=== PATIENT | female | born 1965 | race Caucasian/White ===

== ENCOUNTER 2017-07-30 10:31 | Emergency (ER) | payer SELFPAY ==
--- NOTE | 2017-07-30 10:40 | ED.PDOC ---
History of Present Illness - General Chief Complaint: General Stated Complaint: constipation Time Seen by Provider: 07/30/17 10:38 Information Source: patient Exam Limitations: no limitations - History of Present Illness Initial Comments: Bee Webb 51 y/o female stated that she had been constipated for the last 2 weeks and had bowel movement w/ small stools today and for the last one week with some abdominal discomfort and crampings.Had used OTC laxatives and stool softeners;no nausea/vomiting or abdominal pain Abdominal Pain Onset Location: other - discomfort/cramps Pain Radiation: no radiation Quality: moderate, cramping Timing/Duration: other - one week Worsening Factors: nothing Associated Symptoms: fever/chills Review of Systems - Review of Systems Constitutional: States: no symptoms reported EENTM: States: no symptoms reported Respiratory: States: no symptoms reported Cardiology: States: no symptoms reported Gastrointestinal/Abdominal: States: see HPI Genitourinary: States: no symptoms reported Past Medical History (General) - Patient Medical History Hx Seizures: No Hx Stroke: No Hx Dementia: No Hx Asthma: No Hx of COPD: No Hx Cardiac Disorders: No Hx Congestive Heart Failure: No Hx Pacemaker: No Hx Hypertension: Yes Hx Thyroid Disease: No Hx Diabetes: No Hx Gastroesophageal Reflux: No Hx Renal Disease: No Hx of HIV: No Hx MRSA: No Surgical History: other - c- section - Vaccination History Hx Tetanus, Diphtheria Vaccination: Yes - 03/2016 Hx Influenza Vaccination: No Hx Pneumococcal Vaccination: No - Social History Hx Tobacco Use: Yes - quit 1989 Hx Alcohol Use: No Hx Substance Use: No Hx Substance Use Treatment: No Hx Depression: No Hx Physical Abuse: No Hx Emotional Abuse: No Hx Suspected Abuse: No - Female History Patient : No Family Medical History - Family History Mother Family History: No Known Living Status: Hx Family;Other: aneurysm, brain Physical Exam - Physical Exam General Appearance: Alert, No apparent distress Eyes, Ears, Nose, Throat Exam: PERRL/EOMI, normal ENT inspection, pharynx normal Neck: non-tender, full range of motion, supple Respiratory: chest non-tender, lungs clear, normal breath sounds Cardiovascular/Chest: normal peripheral pulses, regular rate, rhythm, no murmur Peripheral Pulses: No deficit Gastrointestinal/Abdominal: soft, no organomegaly, tenderness - generalized Rectal Exam: normal rectal tone, heme negative stool, other - empty rectal vault Back Exam: no CVA tenderness, no vertebral tenderness Extremity: normal range of motion, non-tender Neurologic: alert, normal mood/affect, oriented x 3 Skin Exam: normal color, warm/dry Lymphatic: no adenopathy Progress - Progress Progress: 07/30/17 13:16 Last Vital Signs Temp 101.6 F H 07/30/17 12:00 Pulse 85 07/30/17 12:00 Resp 20 07/30/17 12:00 BP 128/87 07/30/17 12:00 Pulse Ox 97 07/30/17 12:00 Laboratory Tests 07/30/17 07/30/17 07/30/17 11:00 11:00 11:08 WBC 14.8 H RBC 5.20 Hgb 14.9 Hct 43.9 MCV 84.4 MCH 28.7 MCHC 34.0 RDW 13.0 Plt Count 479 H MPV 7.6 Absolute Neuts (auto) 12.60 H Absolute Lymphs (auto) 1.10 Absolute Monos (auto) 1.10 H Absolute Eos (auto) 0.00 Absolute Basos (auto) 0.00 Neutrophils % 85.2 H Lymphocytes % 7.1 L Monocytes % 7.2 Eosinophils % 0.2 L Basophils % 0.3 Sodium 135 Potassium 2.9 L Chloride 96 L Carbon Dioxide 24 Anion Gap 17.9 BUN 8 Creatinine 0.81 BUN/Creatinine Ratio 9.9 L Random Glucose 140 H Serum Osmolality 270.7 L Lactic Acid Calcium 9.7 Magnesium Total Bilirubin 0.8 AST 46 H ALT 121 H Alkaline Phosphatase 109 Serum Total Protein 8.6 H Albumin 3.9 Globulin 4.7 H Albumin/Globulin Ratio 0.8 L Urine Color Yellow Urine Appearance Clear Urine pH 7.0 Ur Specific [place] 1.020 Urine Protein Negative Urine Glucose (UA) Negative Urine Ketones Negative Urine Blood Trace-lysed H Urine Nitrite Negative Urine Bilirubin Negative Urine Urobilinogen 1.0 Ur Leukocyte Esterase Negative Urine RBC 1-3 Urine WBC 0 Ur Epithelial Cells 0 Urine Bacteria 0 Stool Occult Blood 07/30/17 07/30/17 07/30/17 11:08 11:15 11:55 WBC RBC Hgb Hct MCV MCH MCHC RDW Plt Count MPV Absolute Neuts (auto) Absolute Lymphs (auto) Absolute Monos (auto) Absolute Eos (auto) Absolute Basos (auto) Neutrophils % Lymphocytes % Monocytes % Eosinophils % Basophils % Sodium Potassium Chloride Carbon Dioxide Anion Gap BUN Creatinine BUN/Creatinine Ratio Random Glucose Serum Osmolality Lactic Acid 1.8 Calcium Magnesium 2.1 Total Bilirubin AST ALT Alkaline Phosphatase Serum Total Protein Albumin Globulin Albumin/Globulin Ratio Urine Color Urine Appearance Urine pH Ur Specific [place] Urine Protein Urine Glucose (UA) Urine Ketones Urine Blood Urine Nitrite Urine Bilirubin Urine Urobilinogen Ur Leukocyte Esterase Urine RBC Urine WBC Ur Epithelial Cells Urine Bacteria Stool Occult Blood Negative Discussed with Dr. Martin surgeon will see patient at ER. - EKG/XRAY/CT CT Ordered: Yes - sigmoid diverticulitis with pelvic abscess Departure - Departure Clinical Impression: Hypokalemia due to loss of potassium Abdominal pain Qualifiers: Abdominal location: generalized Qualified Code(s): R10.84 - Generalized abdominal pain Diverticulitis Qualifiers: Diverticulitis site: large intestine Diverticulitis bleeding: without bleeding Diverticulitis complication: with abscess Qualified Code(s): K57.20 - Diverticulitis of large intestine with perforation and abscess without bleeding Time of Disposition: 14:16 Disposition: Transfer to Hospital Condition: Good Departure Forms: Patient Portal Self Enrollment Referrals: Kimberly Florez, [facility] [Primary Care Provider] - 1-2 Weeks Home Medications: Ambulatory Orders Lisinopril [Zestril] 40 mg PO DAILY 06/12/14 Paroxetine HCl 30 mg PO DAILY 06/29/14 Trazodone HCl 100 mg PO BEDTIME 07/10/15 busPIRone HCL [Buspar] 10 mg PO BID 07/10/15 predniSONE [Prednisone] 20 mg PO DAILY #10 tab 07/30/15 Acetaminophen W/ Codeine [Tylenol W/ CODEINE #3] 1 ea PO Q4H PRN #20 03/26/16 Ibuprofen [Motrin Tab] 600 mg PO TID PRN #15 tab 03/26/16 Acetaminophen W/ Codeine [Tylenol w/Codeine 300-30 mg] 1 - 2 tab PO Q6H PRN #30 tab 04/03/16 Transfer to Outside Facility - Transfer Information Accepting Provider:: Ed Hospitalist Accepting Facility: [facility] Reason for Transfer: specialized care not available
--- NOTE | 2017-07-30 11:33 | RAD ---
EXAM DESCRIPTION: Abdomen Flat Upright CLINICAL HISTORY: 51 years Female, constipation COMPARISON: None. FINDINGS: There is no free subdiaphragmatic gas or intra-abdominal air-fluid level. There is a moderate amount of colonic stool and gas. No dilated small bowel loops. There is no suspicious intra-abdominal calcification or mass. No concerning bone lesion. IMPRESSION: Moderate amount of colonic stool and gas, otherwise unremarkable exam. Electronically signed by: Maykel Vines MD 07/30/2017 11:32 AM CDT
--- NOTE | 2017-07-30 11:34 | RAD ---
EXAM DESCRIPTION: Chest,2 Views CLINICAL HISTORY: constipation COMPARISON: None available FINDINGS: The cardiomediastinal silhouette is unremarkable. There is no airspace consolidation or pleural effusion. The bronchovascular markings are within normal limits, and the lungs are not hyperinflated. There is no pneumothorax or acute fracture. IMPRESSION: Negative exam. Electronically signed by: Maykel Vines MD 07/30/2017 11:32 AM CDT
[2017-07-30] MEDS ORDERED: KCL 40MEQ/NS 1,000 ML IVS PRN (11:51)
--- NOTE | 2017-07-30 12:45 | CT ---
EXAM DESCRIPTION: CT ABDOMEN AND PELVIS WITH CONTRAST CLINICAL HISTORY: pain COMPARISON: March 18, 2015 TECHNIQUE: CT of the abdomen and pelvis are performed during IV bolus administration of mL of Isovue 300. Oral contrast media is administered as well. FINDINGS: The lung bases are clear. Liver is normal in size and parenchymal appearance. Spleen, pancreas, and kidneys are unremarkable. There is marked inflammation of the midportion of the sigmoid colon with surrounding strandy inflammatory changes and a loculated fluid collection/abscess along the posterior/left lateral wall of the colon measuring 4.5 x 3.4 cm in size. No free intraperitoneal air noted. Complex cyst left ovary measures 3 cm in greatest dimension and has a fluid level suggesting hemorrhagic cyst. A smaller hemorrhagic cyst is present on the right measuring 2.2 cm in size. IMPRESSION: 1. Complicated diverticulitis of the mid sigmoid with deep pelvic abscess. This abscess would be very challenging to drain percutaneously because of structures between the abscess and the skin. 2. Hemorrhagic ovarian cysts the largest of which is on the left measuring 3 cm. No follow-up is indicated for the ovarian cysts per best practice recommendations. This exam was performed according to our departmental dose-optimization program, which includes automated exposure control, adjustment of the mA and/or kV according to patient size and/or use of iterative reconstruction technique. Electronically signed by: Moises Mcclellan MD 07/30/2017 12:44 PM CDT
[2017-07-30] MEDS ORDERED: PIPERACILLIN/TAZOBACTAM 4.5 GM in SODIUM CHLORIDE 0.9% 100ML 100 ML IVPB ONE (13:04)
[2017-07-30] MEDS ORDERED: SODIUM CHLORIDE 0.9% 100ML 100 ML IVPB ONE (13:21)
[2017-07-30] MEDS ORDERED: PIPERACILLIN/TAZOBACTAM 2.25 GM VIAL IVPB ONE (13:21)
[2017-07-30 14:31] VITALS: O2SAT 97
[2017-07-30 15:15] VITALS: BP 136/93; TEMP 101.2
== END 2017-07-30 15:04 | disposition short-term general hospital (02) ==
LOC: ER 10:31
DX: K57.20 Diverticulitis of large intestine with perforation and abscess without bleeding (principal); E87.6 Hypokalemia; I10 Essential (primary) hypertension; Z87.891 Personal history of nicotine dependence
CPT/HCPCS: 36415; 71020; 74010; 74177; 80053; 81001; 82270; 83605; 83735; 85025; 87040; 93005; J2543; J3480; J7050

== ENCOUNTER 2018-12-07 11:41 | Emergency (ER) | payer SELFPAY ==
[2018-12-07] MEDS ORDERED: HYDROcodone 10MG/APAP 325MG 1 EA TAB PO ONE (12:14)
[2018-12-07] MEDS ORDERED: SODIUM CHLORIDE 0.9% 1000ML 250 ML IVS ONE (13:33)
--- NOTE | 2018-12-07 16:25 | CT ---
PROCEDURE: CT Abdomen and Pelvis With Intravenous Contrast CLINICAL INDICATION: The patient is 53 years years old, Female; LLQ pain TECHNIQUE: Axial computed tomography images of the abdomen and pelvis with intravenous contrast. Sagittal and coronal reformatted images were created and reviewed. This CT exam was performed using one or more of the following dose reduction techniques: automated exposure control, adjustment of the mA and/or kV according to patient size, and/or use of iterative reconstruction technique. COMPARISON: No relevant prior studies available. FINDINGS: LUNG BASES: The lung bases are clear PLEURAL SPACE: No pleural effusions or pneumothoraces. ABDOMEN: LIVER: The liver is enlarged, measuring 19.9 cm longitudinally in the right lobe. There is a diffuse mild decrease in hepatic parenchymal density in comparison to a more dense thin rind along the pericholecystic area, consistent with fatty infiltration with minimal focal sparing. GALLBLADDER AND BILE DUCTS: There is some dependent density in the gallbladder neck concerning for tiny calculi. There is no mural thickening or pericholecystic inflammatory changes. PANCREAS: Unremarkable. No ductal dilatation, inflammatory changes or mass. SPLEEN: Unremarkable. No splenomegaly or focal defects. ADRENALS: Unremarkable. No mass or calcification. KIDNEYS AND URETERS: Unremarkable. There are no acute findings. There is no evidence of solid renal mass, nonobstructive intrarenal calculi or pelvocaliectases/ureterectases. STOMACH AND BOWEL: The small bowel is unremarkable with the exception of mild mural thickening in the terminal ileum. There are scattered colonic diverticula. There is a fairly long segment of wall thickening along the sigmoid colon, consistent in appearance with acute diverticulitis or colitis. There is a circumscribed collection of fluid in the adjacent pericolonic tissues, consistent with abscess formation and measuring 1.5 cm T by 1.5 cm AP by 3.3 cm CC. The stomach is unremarkable. Mild mural thickening in the terminal ileum may relate to nondistention versus nonspecific mild inflammatory change. PELVIS: APPENDIX: The appendix is present and appears normal. BLADDER: Unremarkable, allowing for the degree of distention. There is no evidence of cystolithiasis or bladder mass. REPRODUCTIVE: The uterus and adnexa are unremarkable. ABDOMEN and PELVIS: INTRAPERITONEAL SPACE: There is no evidence of free air. BONES/JOINTS: There is no evidence of acute fracture, osseous destruction or osteoblastic changes. There are diffuse enthesopathic changes including a rolling pattern of ossification in the thoracic spine consistent with diffuse idiopathic skeletal hyperostosis (DISH). There is osteitis pubis. SOFT TISSUES: Unremarkable. VASCULATURE: Unremarkable. No abdominal aortic aneurysm. LYMPH NODES: Unremarkable. There is no evidence of mesenteric, retroperitoneal, pelvic, or inguinal adenopathy. IMPRESSION: 1. Mild hepatomegaly and hepatic steatosis with pericholecystic sparing. 2. Severe mural thickening in the sigmoid colon with a 1.5 cm T by 1.5 cm AP by 3.3 cm CC peridiverticular abscess versus transmural colitis with small pericolic abscess as may occur with Crohn's disease. As an underlying malignancy should also be considered, a follow-up examination after a course of treatment is recommended. THIS REPORT CONTAINS FINDINGS THAT MAY BE CRITICAL TO PATIENT CARE: The findings were verbally discussed via telephone conference with Dr. Kwadwo Orozco by Dr. Alycia Boyd on 12/07/2018 4:[address] .The results were acknowledged and understood. 3. Suspect cholelithiasis. Gallbladder sonography recommended if clinically indicated. 4. Mild mural thickening in the terminal ileum may reflect nondistention versus mild inflammatory change. 5. Remainder of findings as described above. Electronically signed by: Alycia Boyd MD 12/07/2018 4:[address] [employer]
[2018-12-07] MEDS ORDERED: PIPERACILLIN/TAZOBACTAM 3.375 GM VIAL IVPB ONE (16:30)
[2018-12-07] MEDS ORDERED: SODIUM CHLORIDE 0.9% 100ML 100 ML IVPB ONE (16:30)
[2018-12-07] MEDS ORDERED: PIPERACILLIN/TAZOBACTAM 3.375 GM in SODIUM CHLORIDE 0.9% 100ML 100 ML IVPB ONE (16:31)
--- NOTE | 2018-12-07 16:34 | ED.PDOC ---
History of Present Illness - General Chief Complaint: Abdominal Pain Stated Complaint: colon spasms Time Seen by Provider: 12/07/18 12:13 Information Source: patient, Vital Signs reviewed Exam Limitations: no limitations - History of Present Illness Initial Comments: c/o diffuse "colon spasms" for a week. She has had previous episodes with diverticulitis but not lasting this long. No fevers. Abdominal Pain Onset Location: generalized abdomen Pain Radiation: no radiation Quality: moderate Timing/Duration: 1 week Improving Factors: nothing Worsening Factors: nothing Associated Symptoms: other - constipation; nausea Review of Systems - Review of Systems Constitutional: States: see HPI, malaise EENTM: States: no symptoms reported Respiratory: States: no symptoms reported Cardiology: States: no symptoms reported Gastrointestinal/Abdominal: States: see HPI, abdominal pain, nausea Genitourinary: States: no symptoms reported Musculoskeletal: States: no symptoms reported Skin: States: no symptoms reported Neurological: States: no symptoms reported Endocrine: States: no symptoms reported. Denies: unexplained weight gain, unexplained weight loss Hematologic/Lymphatic: States: no symptoms reported Past Medical History (General) - Patient Medical History Hx Seizures: No Hx Stroke: No Hx Dementia: No Hx Asthma: No Hx of COPD: No Hx Cardiac Disorders: No Hx Congestive Heart Failure: No Hx Pacemaker: No Hx Hypertension: Yes Hx Thyroid Disease: No Hx Diabetes: No Hx Gastroesophageal Reflux: No Hx Renal Disease: No Hx of HIV: No Hx MRSA: No - Vaccination History Hx Tetanus, Diphtheria Vaccination: Yes - 03/2016 Hx Influenza Vaccination: No Hx Pneumococcal Vaccination: No - Social History Hx Tobacco Use: No Hx Alcohol Use: No Hx Substance Use: No Hx Substance Use Treatment: No Hx Depression: No Hx Physical Abuse: No Hx Emotional Abuse: No Hx Suspected Abuse: No - Female History Patient : No Family Medical History - Family History Mother Family History: No Known Living Status: Hx Family;Other: aneurysm, brain Physical Exam - Physical Exam General Appearance: Alert, Comfortable, No apparent distress Eyes, Ears, Nose, Throat Exam: normal ENT inspection Neck: supple, normal inspection Respiratory: lungs clear, normal breath sounds, no respiratory distress, no accessory muscle use Cardiovascular/Chest: normal peripheral pulses, regular rate, rhythm, no gallop, no JVD Gastrointestinal/Abdominal: soft, no organomegaly, tenderness - mild LLQ & RLQ pain Back Exam: normal inspection Extremity: normal range of motion, normal inspection Neurologic: alert, normal mood/affect, oriented x 3 Skin Exam: normal color, warm/dry Special Observations: No evidence of discomfort Progress - Progress Progress: 12/07/18 16:33 Sitting in a chair. Unchanged. 12/07/18 17:42 186/102. Has been off meds for at least 2 mos. Will defer HTN managemnt to hospitalist. - EKG/XRAY/CT CT Ordered: Yes - Consult/PCP Time Called: 16:13 Consult/PCP: Radiologist - peridiverticular abscess Departure - Departure Clinical Impression: Diverticulitis, Intra-abdominal abscess Time of Disposition: 17:41 Disposition: Transfer to Hospital Condition: Good Home Medications: Ambulatory Orders NK 12/07/18 Transfer to Outside Facility - Transfer Information Accepting Facility: [facility] Reason for Transfer: specialized care not available - have d/w Dr. Martin
[2018-12-07 18:09] VITALS: BP 172/114; TEMP 96.9; O2SAT 96
== END 2018-12-07 18:09 | disposition short-term general hospital (02) ==
LOC: ER 11:41
DX: K65.1 Peritoneal abscess (principal); K57.20 Diverticulitis of large intestine with perforation and abscess without bleeding; I10 Essential (primary) hypertension
CPT/HCPCS: 36415; 74177; 80048; 81001; 85025; J2543; J7030; J7050

== ENCOUNTER 2019-01-11 06:07 | Emergency (ER) | payer SELFPAY ==
[2019-01-11 06:28] VITALS: TEMP 98.2
--- NOTE | 2019-01-11 06:56 | ED.PDOC ---
History of Present Illness - General Chief Complaint: Problem Stated Complaint: painful urination Time Seen by Provider: 01/11/19 06:15 Source: patient Exam Limitations: no limitations - History of Present Illness Initial Comments: Bee Webb 53 y/o female came to ER with history of urgency and urinary frequency for the last 3 days no fever/chills,no nausea/vomiting.Had been hospitalized for Diverticulitis for 4 days and outpatient antibiotics for 2 weeks.Also ran out of antihypertensive medication wants refill. Timing/Duration: other - see hpi Quality: burning Onset Location: suprapubic Radiation: none Activites at Onset: none Sexual intercourse history: not active Improving Factors: nothing Worsening Factors: nothing Associated Symptoms: urinary frequency Allergies/Adverse Reactions: Allergies NO KNOWN ALLERGY Allergy (Verified 01/11/19 06:28) Home Medications: Ambulatory Orders Atenolol [Tenormin] 25 mg PO BID #60 tab 01/11/19 Ciprofloxacin [Cipro] 250 mg PO Q12H 10 Days #20 tablet 01/11/19 Lisinopril 20 mg PO DAILY #30 tab 01/11/19 Review of Systems - Review of Systems Constitutional: States: no symptoms reported EENTM: States: no symptoms reported Respiratory: States: no symptoms reported Cardiology: States: no symptoms reported Genitourinary: States: see HPI Musculoskeletal: States: no symptoms reported All other Systems: Reviewed and Negative, No Change from Baseline Past Medical History (General) - Patient Medical History Hx Seizures: No Hx Stroke: No Hx Dementia: No Hx Asthma: No Hx of COPD: No Hx Cardiac Disorders: No Hx Congestive Heart Failure: No Hx Pacemaker: No Hx Hypertension: Yes - uncontrolled Hx Thyroid Disease: No Hx Diabetes: No Hx Gastroesophageal Reflux: No Hx Renal Disease: No Hx Cancer: No Hx of HIV: No Hx Hepatitis C: No Hx MRSA: No Surgical History: other - Vaccination History Hx Tetanus, Diphtheria Vaccination: Yes - 03/2016 Hx Influenza Vaccination: No Hx Pneumococcal Vaccination: No - Social History Hx Tobacco Use: No Hx Alcohol Use: No Hx Substance Use: No Hx Substance Use Treatment: No Hx Depression: No Hx Physical Abuse: No Hx Emotional Abuse: No Hx Suspected Abuse: No - Female History Patient : No Family Medical History - Family History Mother Family History: No Known Living Status: Hx Family;Other: aneurysm, brain Physical Exam - Physical Exam General Appearance: Alert, Comfortable, No apparent distress Eyes, Ears, Nose, Throat Exam: normal ENT inspection Neck: supple Cardiovascular/Respiratory: normal peripheral pulses Gastrointestinal/Abdominal: non tender, soft Extremity: no pedal edema, no calf tenderness Neurologic: alert, oriented x 3 Skin Exam: normal color, warm/dry Progress - Progress Progress: 01/11/19 06:58 Vital Signs - 8 hr 01/11/19 06:17 Temperature 98.2 F Pulse Rate [ 93 H monitor] Respiratory 16 Rate Blood Pressure 165/122 [Left Arm] O2 Sat by Pulse 97 Oximetry - Results/Orders Results/Orders: Vital Signs - 8 hr 01/11/19 06:17 Temperature 98.2 F Pulse Rate [ 93 H monitor] Respiratory 16 Rate Blood Pressure 165/122 [Left Arm] O2 Sat by Pulse 97 Oximetry Departure - Departure Clinical Impression: Urinary tract infection Qualifiers: Urinary tract infection type: site unspecified Hematuria presence: without hematuria Qualified Code(s): N39.0 - Urinary tract infection, site not specified Time of Disposition: 07:03 Disposition: Discharge to Home or Self Care Condition: Fair Departure Forms: ED Discharge - Pt. Copy, Patient Portal Self Enrollment Instructions: Urinary Tract Infection, Adult (DC), Urinary Tract Infections in Adults Referrals: Kimberly Florez NP [Primary Care Provider] - 1-2 Weeks Prescriptions: Atenolol [Tenormin] 25 mg PO BID #60 tab Ciprofloxacin [Cipro] 250 mg PO Q12H 10 Days #20 tablet Lisinopril 20 mg PO DAILY #30 tab Home Medications: Ambulatory Orders Atenolol [Tenormin] 25 mg PO BID #60 tab 01/11/19 Ciprofloxacin [Cipro] 250 mg PO Q12H 10 Days #20 tablet 01/11/19 Lisinopril 20 mg PO DAILY #30 tab 01/11/19 Additional Instructions: Need to sign up for primary Md;Return to ER as needed
[2019-01-11] MEDS ORDERED: levoFLOXacin 500 MG TAB PO ONE (07:01)
[2019-01-11] MEDS ORDERED: PHENAZOPYRIDINE HCL 200 MG TAB PO ONE (07:02)
[2019-01-11 07:37] VITALS: BP 159/112; O2SAT 96
== END 2019-01-11 07:15 | disposition home or self-care (01) ==
LOC: ER 06:07
DX: N39.0 Urinary tract infection, site not specified (principal); I10 Essential (primary) hypertension; Z79.899 Other long term (current) drug therapy

== ENCOUNTER 2019-09-24 11:54 | Emergency (ER) | payer SELFPAY ==
[2019-09-24 12:12] VITALS: TEMP 97.9
[2019-09-24] MEDS ORDERED: KETOROLAC TROMETHAMINE INJ 30 MG/ML VIAL IV ONE (12:29)
--- NOTE | 2019-09-24 12:32 | ED.PDOC ---
History of Present Illness - General Chief Complaint: Abdominal Pain Stated Complaint: abdominal pain & cramping Time Seen by Provider: 09/24/19 12:07 Information Source: patient Exam Limitations: no limitations - History of Present Illness Initial Comments: 53 yo F with PMH sig for HTN noncompliant with medication for 8 months, diverticulitis who presents for LLQ constant sharp non radiating abd pain onset three days ago with associated straining to have a bowel movement. Pt has never had a colonoscopy because she cannot afford it. Hx of diverticulitis, feels like similar episodes, clears with Augmentin and Flagyl last flare one year ago. Denies f/c, blood in stool, constipation, diarrhea, n/v. Pt states she does not want to be admitted and would like to be d/c on po antibx. Review of Systems - Review of Systems Constitutional: Denies: chills, fever EENTM: States: no symptoms reported Respiratory: Denies: cough, short of breath Cardiology: Denies: chest pain, palpitations, syncope Gastrointestinal/Abdominal: States: abdominal pain. Denies: constipation, diarrhea, nausea, vomiting Genitourinary: Denies: dysuria, frequency, hematuria Musculoskeletal: Denies: back pain, neck pain Skin: Denies: lesions, rash Neurological: Denies: headache, numbness, weakness Endocrine: Denies: increased thirst, increased urine Past Medical History (General) - Patient Medical History Hx Seizures: No Hx Stroke: No Hx Dementia: No Hx Asthma: No Hx of COPD: No Hx Cardiac Disorders: No Hx Congestive Heart Failure: No Hx Pacemaker: No Hx Hypertension: Yes - uncontrolled Hx Thyroid Disease: No Hx Diabetes: No Hx Gastroesophageal Reflux: No Hx Renal Disease: No Hx Cancer: No Hx of HIV: No Hx Hepatitis C: No Hx MRSA: No - Vaccination History Hx Tetanus, Diphtheria Vaccination: Yes - 03/2016 Hx Influenza Vaccination: No Hx Pneumococcal Vaccination: No - Social History Hx Tobacco Use: No Hx Alcohol Use: No Hx Substance Use: No Hx Substance Use Treatment: No Hx Depression: No Hx Physical Abuse: No Hx Emotional Abuse: No Hx Suspected Abuse: No - Activities of Daily Living Hospice Agency (if applicable):: None - Female History Patient : No - Triage Comment ED Triage Comment: pt ambulated to ED bed 2 for triage. pt noted to be holding abdomen during ambulation and crying. pt voices that she has diverticulitis and has had constant abdominal pain spasms and cramping for 3 days. Family Medical History - Family History Mother Family History: No Known Living Status: Hx Family;Other: aneurysm, brain Physical Exam - Physical Exam General Appearance: Alert, Comfortable, No apparent distress, Well Developed, Well Nourished Eyes, Ears, Nose, Throat Exam: normal ENT inspection Neck: full range of motion, supple Respiratory: lungs clear, normal breath sounds, no respiratory distress, no accessory muscle use Cardiovascular/Chest: normal peripheral pulses, regular rate, rhythm, no edema, no gallop, no JVD, no murmur Peripheral Pulses: No deficit Gastrointestinal/Abdominal: normal bowel sounds, soft, no organomegaly, no pulsatile mass, tenderness - LLQ, other - no guarding, rebound Extremity: normal range of motion, non-tender, no pedal edema Neurologic: no motor/sensory deficits, alert, normal mood/affect Skin Exam: normal color, warm/dry Progress - Progress Progress: 09/24/19 14:27 Pt is improved, comfortable with d/c home. I have explained and reviewed all results with the pt. I explained that emergent conditions may arise and to return to the ER for new, worsening, or any persistent conditions. I've explained the importance of f/u for recheck. All questions and concerns addressed at this time. Pt understands and agrees with plan. Pt well appearing, NAD, is stable for discharge. Maday Holland MD Emergency Medicine Physician Billing Number [id number] - Results/Orders Results/Orders: 09/24/19 12:29 Hold Metformin x 48Hrs [id number] 09/24/19 14:21 Urine Culture Stat Laboratory Results - last 24 hr 09/24/19 09/24/19 09/24/19 12:26 12:26 13:57 WBC 6.1 RBC 5.69 H Hgb 15.8 Hct 47.9 H MCV 84.2 MCH 27.8 MCHC 33.0 RDW 14.4 Plt Count 373 MPV 8.0 Absolute Neuts (auto) 3.30 Absolute Lymphs (auto) 2.00 Absolute Monos (auto) 0.40 Absolute Eos (auto) 0.20 Absolute Basos (auto) 0.10 Neutrophils % 54.6 Lymphocytes % 33.2 Monocytes % 7.0 Eosinophils % 4.0 Basophils % 1.2 Sodium 136 Potassium 4.2 Chloride 98 L Carbon Dioxide 27 Anion Gap 15.2 BUN 12 Creatinine 0.89 BUN/Creatinine Ratio 13.5 Random Glucose 111 H Serum Osmolality 272.4 L Calcium 9.3 Total Bilirubin 0.3 AST 22 ALT 31 Alkaline Phosphatase 80 Serum Total Protein 8.0 Albumin 4.2 Globulin 3.8 H Albumin/Globulin Ratio 1.1 Urine Color Yellow Urine Appearance Clear Urine pH 6.0 Ur Specific [place] <= 1.005 Urine Protein Negative Urine Glucose (UA) Negative Urine Ketones Negative Urine Blood Negative Urine Nitrite Negative Urine Bilirubin Negative Urine Urobilinogen 0.2 Ur Leukocyte Esterase Negative Urine RBC 0 Urine WBC 0-1 Ur Epithelial Cells 5-10 Amorphous Sediment 1+ Urine Bacteria 2+ H Urine Mucus Moderate CT abd/pelvis: EXAM DESCRIPTION: Abdomen/Pelvis w/Contrast CLINICAL HISTORY: 53 years Female, llq pain COMPARISON: CT abdomen and pelvis dated 12/07/2018. TECHNIQUE: Contiguous 3 mm axial images were obtained from the lung bases to the level of the proximal femora after the administration of intravenous and oral contrast. Sagittal and coronal reconstructions were reviewed. FINDINGS: THORAX: The imaged lower thorax demonstrates no gross abnormality. LIVER: The liver demonstrates normal size and density with no intrahepatic biliary ductal dilatation or focal masses. GALLBLADDER: Grossly unremarkable. PANCREAS: Appears normal with no cystic or solid lesions. SPLEEN: Normal ADRENAL GLANDS: Normal with no nodules or masses. KIDNEYS: Both kidneys enhance symmetrically with no hydronephrosis or nephrolithiasis or perinephric fluid collections. No focal masses are identified. The visualized ureters appear grossly unremarkable. STOMACH: Not well distended limiting detailed evaluation. SMALL BOWEL: The small bowel loops demonstrate variable degrees of distention with no abnormal dilatation or other signs to suggest bowel obstruction. LARGE BOWEL: Significant circumferential wall thickening of the sigmoid colon with surrounding inflammatory stranding, most likely consistent with acute diverticulitis. No perforation or abscess formation. This portion of the bowel loop appears adherent to the left adnexa. The appendix is well-visualized and appears normal No evidence of free intraperitoneal air or fluid. RETROPERITONEUM: The abdominal aorta is nonaneurysmal with mild atherosclerosis. The inferior vena cava is normal in size and caliber. No abnormally enlarged retroperitoneal lymph nodes are identified. URINARY BLADDER:The urinary bladder is well-distended with no gross abnormality. The uterus and adnexa appear normal. ADDITIONAL FINDINGS: None. BONES: Mild degenerative changes are identified in the visualized bones.No evidence of osteophytic or osteoblastic lesions. IMPRESSION: 1. Acute diverticulosis of the sigmoid colon. No perforation. 2. Circumferential wall thickening of this portion of the sigmoid colon is noted. Colonoscopy is recommended in a nonemergent setting to exclude the possibility of an underlying mass. This exam was performed according to our departmental dose-optimization program, which includes automated exposure control, adjustment of the mA and/or kV according to patient size and/or use of iterative reconstruction technique. Electronically signed by: Terrie Torres MD 09/24/2019 1:46 PM C[employer]ER [employer]ITY OFFICER Vital Signs - 24 hr 09/24/19 09/24/19 09/24/19 12:05 12:06 13:00 Temperature 97.9 F Pulse Rate [ 84 84 70 brachial] Respiratory 18 18 18 Rate Blood Pressure 159/109 153/95 [Left Arm] O2 Sat by Pulse 98 96 Oximetry 09/24/19 14:00 Temperature 97.9 F Pulse Rate [ 70 brachial] Respiratory 18 Rate Blood Pressure 152/78 [Left Arm] O2 Sat by Pulse 95 Oximetry Departure - Departure Clinical Impression: Acute diverticulitis Time of Disposition: 14:24 Disposition: Discharge to Home or Self Care Health Concerns: condition: stable Departure Forms: ED Discharge - Pt. Copy, Patient Portal Self Enrollment Instructions: Diverticulitis (DC) Diet: full liquid diet Prescriptions: Amoxicillin & Pot Clavulanate [Augmentin Tab] 875 mg PO BID #20 tab Dicyclomine HCl [Bentyl] 10 mg IM DAILY #8 inj metroNIDAZOLE [Flagyl] 500 mg PO TID #30 tab Home Medications: Ambulatory Orders Amoxicillin & Pot Clavulanate [Augmentin Tab] 875 mg PO BID #20 tab 09/24/19 metroNIDAZOLE [Flagyl] 500 mg PO TID #30 tab 09/24/19
--- NOTE | 2019-09-24 13:48 | CT ---
EXAM DESCRIPTION: Abdomen/Pelvis w/Contrast CLINICAL HISTORY: 53 years Female, llq pain COMPARISON: CT abdomen and pelvis dated 12/07/2018. TECHNIQUE: Contiguous 3 mm axial images were obtained from the lung bases to the level of the proximal femora after the administration of intravenous and oral contrast. Sagittal and coronal reconstructions were reviewed. FINDINGS: THORAX: The imaged lower thorax demonstrates no gross abnormality. LIVER: The liver demonstrates normal size and density with no intrahepatic biliary ductal dilatation or focal masses. GALLBLADDER: Grossly unremarkable. PANCREAS: Appears normal with no cystic or solid lesions. SPLEEN: Normal ADRENAL GLANDS: Normal with no nodules or masses. KIDNEYS: Both kidneys enhance symmetrically with no hydronephrosis or nephrolithiasis or perinephric fluid collections. No focal masses are identified. The visualized ureters appear grossly unremarkable. STOMACH: Not well distended limiting detailed evaluation. SMALL BOWEL: The small bowel loops demonstrate variable degrees of distention with no abnormal dilatation or other signs to suggest bowel obstruction. LARGE BOWEL: Significant circumferential wall thickening of the sigmoid colon with surrounding inflammatory stranding, most likely consistent with acute diverticulitis. No perforation or abscess formation. This portion of the bowel loop appears adherent to the left adnexa. The appendix is well-visualized and appears normal No evidence of free intraperitoneal air or fluid. RETROPERITONEUM: The abdominal aorta is nonaneurysmal with mild atherosclerosis. The inferior vena cava is normal in size and caliber. No abnormally enlarged retroperitoneal lymph nodes are identified. URINARY BLADDER:The urinary bladder is well-distended with no gross abnormality. The uterus and adnexa appear normal. ADDITIONAL FINDINGS: None. BONES: Mild degenerative changes are identified in the visualized bones.No evidence of osteophytic or osteoblastic lesions. IMPRESSION: 1. Acute diverticulosis of the sigmoid colon. No perforation. 2. Circumferential wall thickening of this portion of the sigmoid colon is noted. Colonoscopy is recommended in a nonemergent setting to exclude the possibility of an underlying mass. This exam was performed according to our departmental dose-optimization program, which includes automated exposure control, adjustment of the mA and/or kV according to patient size and/or use of iterative reconstruction technique. Electronically signed by: Terrie Torres MD 09/24/2019 1:46 PM COREMAKER MACHINE
[2019-09-24 14:50] VITALS: BP 157/88; O2SAT 97
== END 2019-09-24 14:40 | disposition home or self-care (01) ==
LOC: ER 11:54
DX: K57.30 Diverticulosis of large intestine without perforation or abscess without bleeding (principal); I10 Essential (primary) hypertension; Z91.14 Patient's other noncompliance with medication regimen; Z79.899 Other long term (current) drug therapy
CPT/HCPCS: 36415; 74177; 80053; 81001; 85025; J1885

== ENCOUNTER 2020-01-12 12:17 | Emergency (ER) | payer SELFPAY ==
[2020-01-12] MEDS ORDERED: SODIUM CHLORIDE 0.9% (FLUSH) 10 ML SYG IV PRN (13:30)
[2020-01-12] MEDS ORDERED: ONDANSETRON INJ 4 MG/2 ML VIAL IV ONE (13:30)
[2020-01-12] MEDS: KETOROLAC TROMETHAMINE INJ 30 MG/ML VIAL IV ONE ×2 (14:07→14:08)
--- NOTE | 2020-01-12 15:36 | ED.PDOC ---
History of Present Illness - General Chief Complaint: Abdominal Pain Stated Complaint: abdominal pain Time Seen by Provider: 01/12/20 13:29 Information Source: patient, RN notes reviewed, Vital Signs reviewed Exam Limitations: no limitations - History of Present Illness Initial Comments: Patient is a 54-year-old white female who appears older than her stated age who presents with complaints of left lower quadrant pain. She has had chronic left lower quadrant and lower abdominal pain for months, with a history of diverticulitis, but this worsened over the last few days. She is supposed to have a GI appointment tomorrow but could not wait because of the pain. Patient has also been diagnosed with some type of colonic mass which she has not had worked up. This was discovered approximately 3 months ago. The pain is throbbing and stabbing in nature. It is moderate in intensity. Nothing seems to make it better. Worse with palpation or movement. Patient denies any dizziness, blurred vision, chest pain, shortness of breath, nausea, vomiting, diarrhea. Abdominal Pain Onset Location: LLQ Pain Radiation: no radiation Quality: moderate, stabbing, throbbing Timing/Duration: constant, getting worse Improving Factors: nothing Worsening Factors: movement Associated Symptoms: nausea/vomiting - Nausea only, swelling/mass in abdomen - Diagnosed 3 months ago Review of Systems - Review of Systems Constitutional: States: no symptoms reported, see HPI. Denies: chills, fever, malaise EENTM: States: no symptoms reported. Denies: blurred vision, double vision, throat pain, throat swelling Respiratory: States: no symptoms reported. Denies: cough, short of breath, stridor, wheezing Cardiology: States: no symptoms reported. Denies: chest pain, palpitations, syncope Gastrointestinal/Abdominal: States: see HPI, abdominal pain, nausea. Denies: constipation, diarrhea, vomiting Genitourinary: States: no symptoms reported. Denies: discharge, frequency Musculoskeletal: States: no symptoms reported. Denies: back pain, joint swelling, neck pain Skin: States: no symptoms reported. Denies: change in color, rash Neurological: States: no symptoms reported. Denies: tingling, tremors, weakness Endocrine: States: no symptoms reported Hematologic/Lymphatic: States: no symptoms reported All other Systems: No Change from Baseline Past Medical History (General) - Patient Medical History Hx Seizures: No Hx Stroke: No Hx Dementia: No Hx Asthma: No Hx of COPD: No Hx Cardiac Disorders: No Hx Congestive Heart Failure: No Hx Pacemaker: No Hx Hypertension: Yes - uncontrolled Hx Thyroid Disease: No Hx Diabetes: No Hx Gastroesophageal Reflux: No Hx Renal Disease: No Hx Cancer: No Hx of HIV: No Hx Hepatitis C: No Hx MRSA: No - Vaccination History Hx Tetanus, Diphtheria Vaccination: Yes - 03/2016 Hx Influenza Vaccination: No Hx Pneumococcal Vaccination: No - Social History Hx Tobacco Use: No Hx Alcohol Use: No Hx Substance Use: No Hx Substance Use Treatment: No Hx Depression: No Hx Physical Abuse: No Hx Emotional Abuse: No Hx Suspected Abuse: No - Female History Hx Last Menstrual Period: 01/12/20 Patient : No Family Medical History - Family History Mother Family History: No Known Living Status: Hx Family;Other: aneurysm, brain Physical Exam - Physical Exam General Appearance: Alert, Anxious, Obvious distress, Obese, Well Developed, Well Hydrated, Well Nourished Eyes, Ears, Nose, Throat Exam: PERRL/EOMI, normal ENT inspection, pharynx normal Neck: non-tender, full range of motion, supple, normal inspection Respiratory: chest non-tender, lungs clear, normal breath sounds, no respiratory distress Cardiovascular/Chest: normal peripheral pulses, no edema, no gallop, no murmur, tachycardia Peripheral Pulses: 2+ Gastrointestinal/Abdominal: normal bowel sounds, soft, no organomegaly, tenderness - Left lower quadrant Pelvic Exam: other - Deferred at patient request Back Exam: normal inspection, no CVA tenderness, no vertebral tenderness Extremity: normal range of motion, non-tender, normal inspection Neurologic: entertainment agent II-XII nml as tested, no motor/sensory deficits, alert, normal mood/affect, oriented x 3 Skin Exam: normal color, warm/dry Lymphatic: no adenopathy Progress - Progress Progress: Differential diagnosis: Diverticulitis, colonic mass, UTI, pyelonephritis among others. 01/12/20 19:50 Patient with a mildly elevated white count. Significant improvement in her pain with Toradol. CT scan shows a possible paraovarian cyst versus TOA versus pelvic mass. Ultrasound shows possible TOA but patient's signs and symptoms are not consistent with same. Plan on discharge home and treat with IM Rocephin, doxycycline and metronidazole. I discussed this plan of care with the patient she voices understanding and agreement. Patient is scheduled for follow-up with a GI doctor for colonoscopy tomorrow. Plan on discharge at this time.Additionally, I will have patient follow-up with PCP for further evaluation by MRI of this left ovarian/adnexal swelling. Geovanni Oliva M.D. #[id number] - Results/Orders Results/Orders: 01/12/20 13:30 Sodium Chloride 0.9% (Flush) [Saline Flush Syringe] 10 ml IV PRN PRN 01/12/20 15:24 Abdomen/Pelvis w/Contrast [CT] Stat 01/12/20 15:25 Hold Metformin x 48Hrs [id number] Laboratory Results - last 24 hr 01/12/20 01/12/20 01/12/20 13:27 13:58 13:58 WBC 11.7 H RBC 5.45 H Hgb 15.2 Hct 45.3 MCV 83.0 MCH 27.9 MCHC 33.6 RDW 13.9 Plt Count 475 H MPV 7.4 Absolute Neuts (auto) 9.00 H Absolute Lymphs (auto) 1.60 Absolute Monos (auto) 0.90 H Absolute Eos (auto) 0.10 Absolute Basos (auto) 0.10 Neutrophils % 76.5 Lymphocytes % 13.8 L Monocytes % 7.7 Eosinophils % 1.2 Basophils % 0.8 Sodium 139 Potassium 3.4 L Chloride 104 Carbon Dioxide 27 Anion Gap 11.4 L BUN 7 Creatinine 0.86 BUN/Creatinine Ratio 8.1 L Random Glucose 99 Serum Osmolality 275.5 Calcium 8.8 Total Bilirubin 0.3 Direct Bilirubin 0.1 Indirect Bilirubin 0.2 AST 24 ALT 30 Alkaline Phosphatase 69 Serum Total Protein 7.2 Albumin 3.8 Lipase 29 Urine Color Dk yellow H Urine Appearance Clear Urine pH 6.0 Ur Specific [place] 1.025 Urine Protein Negative Urine Glucose (UA) Negative Urine Ketones Trace Urine Blood Negative Urine Nitrite Negative Urine Bilirubin Small H Urine Urobilinogen 0.2 Ur Leukocyte Esterase Negative Urine RBC 0-1 Urine WBC 1-3 Ur Epithelial Cells 3-5 Urine Bacteria Rare Urine Mucus Trace EXAM DESCRIPTION: Abdomen/Pelvis w/Contrast: Computed Tomography. CLINICAL HISTORY: 54 years Female LLQ pain COMPARISON: CT scan of the abdomen and pelvis September 2019. TECHNIQUE: Spiral-axial scans at 5 x 5 mm mm intervals through the abdomen and pelvis, after nonionic IV contrast and water- soluble oral contrast. Coronal and sagittal 2.0 mm reconstructions. No adverse reactions. Total Exam DLP: 841 mGy-cm. This exam was performed according to our departmental dose-optimization program which includes automated exposure control, adjustment of the mA and/or kV according to patient size and/or use of iterative reconstruction technique; to reduce radiation dose to as low as reasonably achievable (ALARA). FINDINGS: Pelvic Organs and Colon: In the left adnexa the ovary is again noted on axial series 2, images [id number]. To the left of the uterine horn and abutting the sigmoid colon which is slightly distended. However inferior to the ovary, is a partially cystic partially solid structure which appears to be thickening the left round ligament and measuring 2.5 x 1.7 x 3.0 cm. Partially enhancing. No calcifications. This could represent a paraovarian cyst, dilated fallopian tube, and this likely a paraovarian abscess or tubal abscess. There is no significant new fatty stranding or fascial thickening abutting the structures. Small diverticula are seen on the descending colon and proximal sigmoid colon. No associated fatty stranding. Right adnexa and ovary are unremarkable. Uterus may be retroflexed. No free fluid in the cul-de-sac. Urinary bladder negative. Small Bowel: Unremarkable. Terminal Ileum/Cecum: Normal caliber. Appendix negative. Lung bases and pleura: Unremarkable. Liver, Stomach, Spleen, Adrenal Glands: Unremarkable. Pancreas, Gallbladder, Ducts: Gallbladder visualized. Otherwise negative. Kidneys and Ureters: Unremarkable. Mesentery: No free fluid or significant fatty stranding. Aorta: Minimal atherosclerotic calcification with normal caliber. Spine and Bony Pelvis: Minimal disc desiccation L5-S1 with canal and bilateral foraminal narrowing. Spondylosis inferior thoracic spine. Abdominal Wall/Back Soft Tissues: Negative. IMPRESSION: 1. Partially fluid and partially solid left adnexal mass, greatest dimension 3 cm, inferior to the left ovary not present on the prior study. Partially enhancing. No calcifications. Considerations include complex paraovarian cyst, partially dilated and obstructed fallopian tube or other adnexal mass. Left ovary slightly larger than on the prior study. No free fluid in the pelvis. Minimal distention of the adjacent sigmoid colon but no inflammatory changes. Consider follow-up pelvic ultrasound. 2. Remainder of the abdomen and pelvis unremarkable. Electronically signed by: Anant Vazquez MD 01/12/2020 4:23 PM CDT EXAM DESCRIPTION: Pelvic,Non-OB CLINICAL HISTORY: 54 years Female left adnexal mass and pain COMPARISON: None. TECHNIQUE: Transvaginal duplex imaging performed to evaluate the pelvis. FINDINGS: There are nabothian cysts in the cervix. Uterus measures 7.8 x 3.8 x 4.3 cm. Endometrial stripe 4 mm. Uterine fibroid measures 2.9 x 1.8 cm. Left ovary is normal in size measuring 2 x 3 cm with normal blood flow. Right ovary is not seen. Question mildly dilated fallopian tube on the left. IMPRESSION: Nonvisualization of the right ovary Fibroid uterus Question mildly dilated distal fallopian tube adjacent to the left ovary. This is suboptimally and is not seen on the transverse images. Consider further evaluation with MRI Electronically signed by: Cee Castanon MD 01/12/2020 7:28 PM Departure - Departure Clinical Impression: Adnexal mass Leukocytosis Qualifiers: Leukocytosis type: unspecified Qualified Code(s): D72.829 - Elevated white blood cell count, unspecified Time of Disposition: 19:54 Disposition: Discharge to Home or Self Care Condition: Good Departure Forms: ED Discharge - Pt. Copy, Patient Portal Self Enrollment Instructions: DI for Abdominal Pain-Adult, Ovarian Cyst (DC) Diet: resume usual diet Activity: increase activity as tolerated Prescriptions: Acetaminophen W/ Codeine [Tylenol W/ CODEINE #3] 1 ea PO Q6H #15 Doxycycline Hyclate 100 mg PO BID #28 cap Lisinopril 20 mg PO DAILY #30 tab metroNIDAZOLE [Flagyl] 500 mg PO BID #20 tab Home Medications: Ambulatory Orders Acetaminophen W/ Codeine [Tylenol W/ CODEINE #3] 1 ea PO Q6H #15 01/12/20 Doxycycline Hyclate 100 mg PO BID #28 cap 01/12/20 Hydroxyzine Pamoate [Vistaril] 50 mg PO BEDTIME 01/12/20 Lisinopril 20 mg PO DAILY 01/12/20 Lisinopril 20 mg PO DAILY #30 tab 01/12/20 Venlafaxine HCl [Effexor Tab] 150 mg PO DAILY 01/12/20 metroNIDAZOLE [Flagyl] 500 mg PO BID #20 tab 01/12/20
--- NOTE | 2020-01-12 16:25 | CT ---
EXAM DESCRIPTION: Abdomen/Pelvis w/Contrast: Computed Tomography. CLINICAL HISTORY: 54 years Female LLQ pain COMPARISON: CT scan of the abdomen and pelvis September 2019. TECHNIQUE: Spiral-axial scans at 5 x 5 mm mm intervals through the abdomen and pelvis, after nonionic IV contrast and water-soluble oral contrast. Coronal and sagittal 2.0 mm reconstructions. No adverse reactions. Total Exam DLP: 841 mGy-cm. This exam was performed according to our departmental dose-optimization program which includes automated exposure control, adjustment of the mA and/or kV according to patient size and/or use of iterative reconstruction technique; to reduce radiation dose to as low as reasonably achievable (ALARA). FINDINGS: Pelvic Organs and Colon: In the left adnexa the ovary is again noted on axial series 2, images [id number]. To the left of the uterine horn and abutting the sigmoid colon which is slightly distended. However inferior to the ovary, is a partially cystic partially solid structure which appears to be thickening the left round ligament and measuring 2.5 x 1.7 x 3.0 cm. Partially enhancing. No calcifications. This could represent a paraovarian cyst, dilated fallopian tube, and this likely a paraovarian abscess or tubal abscess. There is no significant new fatty stranding or fascial thickening abutting the structures. Small diverticula are seen on the descending colon and proximal sigmoid colon. No associated fatty stranding. Right adnexa and ovary are unremarkable. Uterus may be retroflexed. No free fluid in the cul-de-sac. Urinary bladder negative. Small Bowel: Unremarkable. Terminal Ileum/Cecum: Normal caliber. Appendix negative. Lung bases and pleura: Unremarkable. Liver, Stomach, Spleen, Adrenal Glands: Unremarkable. Pancreas, Gallbladder, Ducts: Gallbladder visualized. Otherwise negative. Kidneys and Ureters: Unremarkable. Mesentery: No free fluid or significant fatty stranding. Aorta: Minimal atherosclerotic calcification with normal caliber. Spine and Bony Pelvis: Minimal disc desiccation L5-S1 with canal and bilateral foraminal narrowing. Spondylosis inferior thoracic spine. Abdominal Wall/Back Soft Tissues: Negative. IMPRESSION: 1. Partially fluid and partially solid left adnexal mass, greatest dimension 3 cm, inferior to the left ovary not present on the prior study. Partially enhancing. No calcifications. Considerations include complex paraovarian cyst, partially dilated and obstructed fallopian tube or other adnexal mass. Left ovary slightly larger than on the prior study. No free fluid in the pelvis. Minimal distention of the adjacent sigmoid colon but no inflammatory changes. Consider follow-up pelvic ultrasound. 2. Remainder of the abdomen and pelvis unremarkable. Electronically signed by: Anant Vazquez MD 01/12/2020 4:23 PM CDT
--- NOTE | 2020-01-12 19:29 | US ---
EXAM DESCRIPTION: Pelvic,Non-OB CLINICAL HISTORY: 54 years Female left adnexal mass and pain COMPARISON: None. TECHNIQUE: Transvaginal duplex imaging performed to evaluate the pelvis. FINDINGS: There are nabothian cysts in the cervix. Uterus measures 7.8 x 3.8 x 4.3 cm. Endometrial stripe 4 mm. Uterine fibroid measures 2.9 x 1.8 cm. Left ovary is normal in size measuring 2 x 3 cm with normal blood flow. Right ovary is not seen. Question mildly dilated fallopian tube on the left. IMPRESSION: Nonvisualization of the right ovary Fibroid uterus Question mildly dilated distal fallopian tube adjacent to the left ovary. This is suboptimally and is not seen on the transverse images. Consider further evaluation with MRI Electronically signed by: Cee Castanon MD 01/12/2020 7:28 PM CDT
[2020-01-12] MEDS ORDERED: ACETAMINOPHEN W/COD #3 TAB (ER Disp) PO ONE (20:02)
[2020-01-12 20:04] VITALS: TEMP 98.2
[2020-01-12] MEDS ORDERED: LIDOCAINE 1% 10 ML VIAL INJ ONE (20:13)
[2020-01-12 20:22] VITALS: BP 175/114; O2SAT 97
== END 2020-01-12 20:24 | disposition home or self-care (01) ==
LOC: ER 12:17
DX: R19.09 Other intra-abdominal and pelvic swelling, mass and lump (principal); D72.829 Elevated white blood cell count, unspecified; R10.32 Left lower quadrant pain; R11.0 Nausea; E66.9 Obesity, unspecified; Z87.19 Personal history of other diseases of the digestive system; Z68.33 Body mass index [BMI] 33.0-33.9, adult
CPT/HCPCS: 36415; 74177; 76856; 80048; 80076; 81001; 83690; 85025; J0696; J1885; J2405